=== PATIENT | female | born 1965 | race Caucasian/White ===

== ENCOUNTER 2024-02-26 13:12 | Emergency (ER) | payer OTHER, SELFPAY ==
--- NOTE | ~2024-02-26 | CT_ITS ---
EXAMINATION: CT cervical spine wo con DATE: 02/26/2024 14:28 INDICATION: Right posterior neck pain. TECHNIQUE: Computed tomography (CT) of the cervical spine was performed without intravenous contrast. Automated exposure control and iterative reconstruction technique were employed. The dose-length pro duct was 192.80 mGy-cm. COMPARISON: None FINDINGS: There is a 14 x 11 mm mass posterior to left thyroid lobe. There is 2 mm retrolisthesis of C3 on C4, C4 on C5, and C7 on T1. There is mildly decreased disc height at C3-C4, moderately decrease d disc height at C4-C5, severe decreased disc height at C5-C6 and C6-C7, and mildly decreased disc he ight at C7-T1. There is degenerative pseudopannus around the dens with chronic erosions of the dens. The following disc levels are specifically discussed: C2-C3: There is severe right and moderate left uncovertebral joint osteoarthritis. There is severe bi lateral facet joint osteoarthritis. There is moderate right and mild left neural foraminal stenosis. There is no central canal stenosis. C3-C4: There is severe bilateral uncovertebral joint osteoarthritis. There is severe bilateral facet joint osteoarthritis. There is moderate bilateral neural foraminal stenosis. There is mild central ca nal stenosis. C4-C5: There is severe right and moderate left uncovertebral joint osteoarthritis. There is severe bi lateral facet joint osteoarthritis. There is severe right and moderate left neural foraminal stenosis . There is mild central canal stenosis. C5-C6: There is severe bilateral uncovertebral joint osteoarthritis. There is severe bilateral facet joint osteoarthritis. There is mild bilateral neural foraminal stenosis. There is mild central canal stenosis. C6-C7: There is severe bilateral uncovertebral joint osteoarthritis. There is severe right and modera te left facet joint osteoarthritis. There is mild bilateral neural foraminal stenosis. There is mild central canal stenosis. C7-T1: There is no uncovertebral joint osteoarthritis. There is severe bilateral facet joint osteoart hritis. There is mild bilateral neural foraminal stenosis. There is no central canal stenosis. IMPRESSION: 1. No fracture. 2. Severe cervical spondylosis. 3. 14 x 11 mm mass posterior to left thyroid lobe, which may be a reactive lymph node or a parathyroi d adenoma. Correlate for hyperparathyroidism. Reviewed, dictated and finalized at location A. IMPRESSION: 1. No fracture. 2. Severe cervical spondylosis. 3. 14 x 11 mm mass posterior to left thyroid lobe, which may be a reactive lymp h node or a parathyroid adenoma. Correlate for hyperparathyroidism.
[2024-02-26 13:38] VITALS: BP 138/77; PULSE 108; RESP 20; TEMP 36.4; O2SAT 100
--- NOTE | 2024-02-26 13:49 | ED.NECK ---
HPI - Neck Pain/Injury General Chief Complaint: Neck Pain/Injury <SKIP Yousif Last Filed: 02/26/24 13:56> Stated Complaint: Neck pain <SKIP Yousif Last Filed: 02/26/24 13:56> Time Seen by Provider: 02/26/24 13:49 <SKIP Yousif Last Filed: 02/26/24 13:56> Focused HPI: Patient is a 58 y/o female who presents to the ED with c/o right-sided neck pain. Patient reports history of a pinched nerve in her neck and intermittent flare-ups of pain. She reports she was recently in detention and had sleep without a pillow for few days. Has had worsening pain in her right posterior neck for the last several days. Took Flexeril this morning without relief. States pain radiates into her right posterior shoulder. Intermittent tingling in her R arm. No numbness. No new distinct injury. GENERAL: Appears older than stated age, well-nourished, and in no acute distress. HEAD: Normocephalic, atraumatic. CHEST: Clear to auscultation. ?No respiratory distress. HEART: Regular rate and rhythm.? MSK: TTP throughout R paraspinal cervical musculature, extending to R trapezius. No significant midline cervical spinal tenderness. Sensation intact. NEURO: ?Alert and oriented x3. PSYCHIATRIC: Exaggerated responses, almost manic speech. Patient screened in triage and initial orders placed.? ?Additional care and disposition to be based upon?diagnostic testing and treatment. <SKIP Yousif Last Filed: 02/26/24 13:56> Source: patient <SKIP Yousif Last Filed: 02/26/24 13:56> Mode of arrival: ambulatory <SKIP Yousif Last Filed: 02/26/24 13:56> Limitations: no limitations <SKIP Yousif Last Filed: 02/26/24 13:56> History of Present Illness HPI Narrative: Agree with the above note. She denies recent injury or trauma, fever, clumsiness with her right hand, focal numbness or weakness to extremities, saddle anesthesia, bowel or bladder incontinence. She has not seen a neurosurgeon for this. <Macrina Benoit PA-C - Last Filed: 02/26/24 18:34> Related Data Allergies/Adverse Reactions: Allergies Allergy/AdvReac Type Severity Reaction Status Date / Time No Known Allergies Allergy Unverified 07/22/17 16:47 <Nalini Montana PA-C - Last Filed: 02/26/24 13:56> Review of Systems Review of Systems: All systems reviewed & are unremarkable except as noted in HPI and below <Macrina Benoit PA-C - Last Filed: 02/26/24 18:34> [facility] Family History Family History: Family History Other Family history of malignant neoplasm of male breast <Nalini Montana PA-C - Last Filed: 02/26/24 13:56> Social History Social History: Social History Smoking status: Never smoker Alcohol intake: current <Nalini Montana PA-C - Last Filed: 02/26/24 13:56> Exam Narrative: GENERAL: Appears uncomfortable HEAD: Normocephalic, atraumatic. ENT: Nares clear, no rhinorrhea or epistaxis. Mucous membranes moist. NECK: No significant midline cervical spinous tenderness, however standard miss to the right cervical paraspinous muscles extending into the right shoulder and scapula. CHEST: Clear to auscultation. No respiratory distress. HEART: Regular rate and rhythm. No murmur heard. Normal peripheral pulses. EXTREMITIES: Sensation intact to bilateral upper and lower extremities. Radial, median ulnar nerves intact to the bilateral upper extremities. Mat Puncher strength 5/5, full range of motion of right arm. Radial pulse 2 +. SKIN: Warm, dry, no rash. NEURO: No focal deficits. Alert and oriented x3 <Macrina Benoit PA-C - Last Filed: 02/26/24 18:34> Course Vital Signs Vital signs: Vital Signs Temperature 97.5 F L 02/26/24 13:38 Pulse Rate 108 H 02/26/24 13:3
--- NOTE | 2024-02-26 16:20 | PC.NURSE ---
Patient did not answer to reassess vitals or notify social media specialist of departure.
[2024-02-26] MEDS: KETOROLAC 30 MG/ML VIAL (*BKC) IM (17:22)
[2024-02-26] MEDS: methocarbamoL 500 MG TABLET 1000 MG PO (17:22)
[2024-02-26] MEDS: ACETAMINOPHEN 500 MG TABLET 1000 MG PO (17:22)
[2024-02-26] MEDS: methylPREDNISolone SOD SUCC 125 MG VIAL IM (17:23)
[2024-02-26 17:33] VITALS: BP 134/102; PULSE 108; RESP 18; O2SAT 96
[2024-02-26] MEDS: LIDOCAINE 5% PATCH 1 PATCH TRANSDERM (17:48)
[2024-02-26] MEDS: diazePAM INJ (*CRX) 10 MG/2 ML SYRINGE 5 MG IM (17:49)
[2024-02-26 18:03] LABS: Basophils Percent Auto 0.7 % (0.2-1.2); Eosinophils Absolute Auto 0.2 K/mm3 (0-0.3); Eosinophils Percent Auto 3.3 % (0-4.4); Hematocrit 39.5 % (37.0-47.0); Hemoglobin 13.1 g/dL (12.0-15.0); Immature Granulocyte Absolute 0.05 K/mm3 (0.00-0.031); Immature Granulocyte Percent A 0.9 % (0-0.5); Lymphocytes Absolute Auto 2.32 K/mm3 (0.9-3.2); Mean Corpuscular HGB Conc 33.2 g/dl (32-36); Mean Corpuscular Hemoglobin 32.3 pg (26-34); Mean Corpuscular Volume 97.3 fl (80-100); Mean Platelet Volume 9.6 fl (7.4-10.4); Monocytes Absolute Auto 0.5 K/mm3 (0.1-0.6); Monocytes Percent Auto 8.5 % (2.6-8.5); Neutrophils Absolute Auto 2.5 K/mm3 (1.3-6.7); Neutrophils Percent Auto 44.6 % (45.5-73.1); Platelet Count Result 379 k/mm3 (150-375); Red Blood Count 4.06 M/mm3 (4.2-5.4); Red Cell Distribution Width 13.6 % (11.5-14.5); White Blood Count 5.5 K/mm3 (4.5-10.0)
[2024-02-26 18:14] LABS: Alanine Aminotransferase 23 U/L (6-35); Alkaline Phosphatase 71 U/L (38-126); Anion Gap 6 mmol/L (4-12); Aspartate Amino Transferase 30 U/L (14-36); Bilirubin,Total 0.2 mg/dL (0.2-1.3); Blood Urea Nitrogen 9 mg/dL (7-17); Calcium 9.9 mg/dL (8.4-10.2); Carbon Dioxide 28 mmol/L (22-30); Chloride 103 mmol/L (98-107); Estimated CRCL calculation 62 ml/min; Estimated Glomerular Filt Rate > 60; Glucose 98 mg/dL (65-110); Magnesium 1.6 mg/dL (1.6-2.3); Potassium 4.4 mmol/L (3.4-5.0); Sodium 137 mmol/L (137-145)
[2024-02-26 18:42] VITALS: BP 126/84; PULSE 93; RESP 16; TEMP 36.5; O2SAT 99
== END 2024-02-26 18:45 | disposition home or self-care (01) ==
PROVIDERS: Emergency Provider Physician Assistant; PCP Physician Assistant
DX: M54.12 Radiculopathy, cervical region (principal); R22.1 Localized swelling, mass and lump, neck
CPT/HCPCS: 36415; 72125; 80053; 83735; 85025; 96372; 99284; A9270; J1885; J2919; J3360